=== PATIENT | male | born 2000 | race Caucasian/White ===

== ENCOUNTER 2019-07-25 07:34 | Emergency (ER) | payer BC, OTHER ==
[~2019-07-25] VITALS: Ht 172.7 cm; Wt 59.0 kg
--- NOTE | 2019-07-25 08:02 | ED Psychosocial ---
General Chief Complaint: Psych/Social Disorder Stated Complaint: PSYCH EVAL Nursing Triage Note: PT AMB TO [facility] 8 WITH COMPLAINT OF INSOMNIA AND MOOD CHANGES OVER THE LAST TWO WEEKS. STATES HE HAS BEEN HAVING ANXIETY ISSUES, BUT SYMPTOMS WORSENED WHEN RETURNING BACK TO SCHOOL. Source: patient Exam Limitations: no limitations History of Present Illness Date Seen by Provider: Jul 25, 2019 Time Seen by Provider: 07:35 Initial Comments Patient presents to ER by private conveyance with chief complaint of morbid ideation, low mood, insomnia, decreased appetite all exacerbated in the last 2 weeks. It's related to recently 3 starting school. He says his grades of been well but his social life is been suffering area and he says when he exercises he feels better for a little bit of any crashes. He's made an appointment with her counselor at school but then after talking to somebody going through some similar things he felt better so he canceled that appointment and did not follow-up. He has a primary care doctor and [place] where he grew up but he has not seen him a couple years. He is not on any medications has no medical history. Denies any weight loss or gain, pain, shortness of breath, nausea, vom iting, diarrhea, constipation, shortness of breath. He says he's had fleeting thoughts of jumping on the front of her car but has no plan to do that and instead wants to get help before he gets worse. Says he is not actively suicidal but he is scared about how he's been having a hard time adjusting to college life. Denies any recent tick bites. He's had no previous history of suicide attempts and or inpatient psychiatric hospitalizations. He says he does not think he needs to be hospitalized but he does want help and this doesn't know how to go about accessing this. Allergies and Home Medications Allergies Coded Allergies: No Known Drug Allergies (Unverified , 07/25/19) Patient Home Medication List Home Medication List Reviewed: Yes Review of Systems Constitutional: No chills, No diaphoresis EENTM: No hearing loss, No ear pain Respiratory: No cough, No short of breath Cardiovascular: No chest pain, No edema Gastrointestinal: No abdominal pain, No constipation, No nausea Genitourinary: No decreased output, No dysuria Musculoskeletal: No back pain, No joint pain Skin: No pruritus, No rash Psychiatric/Neurological: See HPI, Anxiety, Depressed; Denies Headache, Denies Numbness, Denies Paresthesia, Denies Seizure Past Jyzoqmm-Fvrrab-Fcvwsm Hx Patient Social History Alcohol Use: Occasionally Uses Recreational Drug Use: No Smoking Status: Never a Smoker Recent Foreign Travel: No Contact w/Someone Who Travel: No Recent Infectious Disease Expo: No Recent Hopitalizations: No Physical Abuse: No Sexual Abuse: No Mistreated: No Fear: No Immunizations Up To Date Tetanus Booster (TDap): Less than 5yrs PED Vaccines UTD: Yes Seasonal Allergies Seasonal Allergies: No Past Medical History Surgeries: No Respiratory: No Cardiac: No Neurological: No Genitourinary: No Gastrointestinal: No Musculoskeletal: No Endocrine: No HEENT: No Cancer: No Psychosocial: No Integumentary: No Blood Disorders: No Physical Exam Vital Signs - First Documented 07/25/19 07:38 Temp 97.7 Pulse 71 Resp 16 B/P (MAP) 147/102 (117) Pulse Ox 100 O2 Delivery Room Air Capillary Refill : Less Than 3 Seconds Height, Weight, BMI Height: 5'8.00" Weight: 130lbs. oz. 58.914676oa; BMI Method:Stated General Appearance: WD/WN, no apparent distress HEENT: PERRL/EOMI, pharynx normal Neck: full range of motion, normal inspection Respiratory: lungs clear, normal breath sounds, no respiratory distress, no accessory muscle use Cardiovascular: normal peripheral pulses, regular rate, rhythm, no edema, no murmur Peripheral Pulses: 2+ Dorsalis Pedis (R), 2+ Left Dors-Pedis (L), 2+ Radial Pulses (R), 2+ Radial Pulses (L) Gastrointestinal: non tender, soft Neurologic/Psychiatric: alert, oriented x 3, other (past) Appearance/Memory: appropriate appearance, appropriate insight, neat, no memory impairment Behavior/Eye Contact: cooperative, good eye contact, normal speech Thoughts/Hallucinations: normal thought pattern, no apparent hallucination; No delusions Skin: normal color, warm/dry Progress/Results/Core Measures Results/Orders Lab Results Laboratory Tests Test 07/25/19 08:31 07/25/19 08:37 Range/Units White Blood Count 4.2 L 4.3-11.0 10^3/uL Red Blood Count 5.78 4.35-5.85 10^6/uL Hemoglobin 16.6 13.3-17.7 G/DL Hematocrit 46 40-54 % Mean Corpuscular Volume 80 80-99 FL Mean Corpuscular Hemoglobin 29 25-34 PG Mean Corpuscular Hemoglobin Concent 36 32-36 G/DL Red Cell Distribution Width 12.1 10.0-14.5 % Platelet Count 201 130-400 10^3/uL Mean Platelet Volume 10.2 7.4-10.4 FL Neutrophils (%) (Auto) 57 42-75 % Lymphocytes (%) (Auto) 31 12-44 % Monocytes (%) (Auto) 11 0-12 % Eosinophils (%) (Auto) 1 0-10 % Basophils (%) (Auto) 0 0-10 % Neutrophils # (Auto) 2.4 1.8-7.8 X 10^3 Lymphocytes # (Auto) 1.3 1.0-4.0 X 10^3 Monocytes # (Auto) 0.4 0.0-1.0 X 10^3 Eosinophils # (Auto) 0.1 0.0-0.3 10^3/uL Basophils # (Auto) 0.0 0.0-0.1 10^3/uL Sodium Level 139 135-145 MMOL/L Potassium Level 4.2 3.6-5.0 MMOL/L Chloride Level 103 98-107 MMOL/L Carbon Dioxide Level 24 21-32 MMOL/L Anion Gap 12 5-14 MMOL/L Blood Urea Nitrogen 11 7-18 MG/DL Creatinine 0.82 0.60-1.30 MG/DL Estimat Glomerular Filtration Rate > 60 BUN/Creatinine Ratio 13 Glucose Level 94 70-105 MG/DL Calcium Level 9.7 8.5-10.1 MG/DL Corrected Calcium 8.5-10.1 MG/DL Total Bilirubin 1.1 H 0.1-1.0 MG/DL Aspartate Amino Transf (AST/SGOT) 18 5-34 U/L Alanine Aminotransferase (ALT/SGPT) 15 0-55 U/L Alkaline Phosphatase 76 40-136 U/L Total Protein 7.6 6.4-8.2 GM/DL Albumin 4.7 H 3.2-4.5 GM/DL Thyroid Stimulating Hormone (TSH) 1.48 0.35-4.94 UIU/ML Salicylates Level < 5.0 L 5.0-20.0 MG/DL Acetaminophen Level < 10 L 10-30 UG/ML Serum Alcohol < 10 <10 MG/DL Urine Color YELLOW Urine Clarity VERY CLOUDY H Urine pH 6.5 5-9 Urine Specific [place] 1.010 L 1.016-1.022 Urine Protein NEGATIVE NEGATIVE Urine Glucose (UA) NEGATIVE NEGATIVE Urine Ketones NEGATIVE NEGATIVE Urine Nitrite NEGATIVE NEGATIVE Urine Bilirubin NEGATIVE NEGATIVE Urine Urobilinogen NORMAL NORMAL MG/DL Urine Leukocyte Esterase NEGATIVE NEGATIVE Urine RBC (Auto) NEGATIVE NEGATIVE Urine RBC NONE /HPF Urine WBC NONE /HPF Urine Squamous Epithelial Cells NONE /HPF Urine Crystals NONE /LPF Urine Bacteria NEGATIVE /HPF Urine Casts NONE /LPF Urine Mucus NEGATIVE /LPF Urine Culture Indicated NO Urine Opiates Screen NEGATIVE NEGATIVE Urine Oxycodone Screen NEGATIVE NEGATIVE Urine Methadone Screen NEGATIVE NEGATIVE Urine Propoxyphene Screen NEGATIVE NEGATIVE Urine Barbiturates Screen NEGATIVE NEGATIVE Ur Tricyclic Antidepressants Screen NEGATIVE NEGATIVE Urine Phencyclidine Screen NEGATIVE NEGATIVE Urine Amphetamines Screen NEGATIVE NEGATIVE Urine Methamphetamines Screen NEGATIVE NEGATIVE Urine Benzodiazepines Screen NEGATIVE NEGATIVE Urine Cocaine Screen NEGATIVE NEGATIVE Urine Cannabinoids Screen NEGATIVE NEGATIVE My Orders Orders - CARLOS ALBERTO,ALCIDES J Ua Culture If Indicated (07/25/19 07:40) Cbc With Automated Diff (07/25/19 07:40) Comprehensive Metabolic Panel (07/25/19 07:40) Alcohol (07/25/19 07:40) Drug Screen Stat (Urine) (07/25/19 07:40) Acetaminophen (07/25/19 07:40) Salicylate (07/25/19 07:40) Ekg Tracing (07/25/19 07:40) Bh Status Checks/Observation Q15M (07/25/19 07:40) Thyroid Stimulating Hormone (07/25/19 08:02) Vital Signs/I&O 07/25/19 07:38 Temp 97.7 Pulse 71 Resp 16 B/P (MAP) 147/102 (117) Pulse Ox 100 O2 Delivery Room Air Blood Pressure Mean: 117 Progress Progress Note #1: Time: 08:01 Progress Note Plan medical screening since he has not had one to rule out anemia, hypothyroidism etc. We have encouraged follow-up with [facility] and will contact Louie lucero to set up some outpatient follow-up. 0810: Talked to Nilson at the [facility] line and he will relay the information to [facility] and attempt to get a screener. Progress Note #2: Time: 08:16 Progress Note Discussed case with Libia at the [facility] line and she says she'll be on about 15 minutes to screen him and help him set up a plan. Progress Note #3: Time: 09:43 Progress Note Libia from [facility] has met with the patient and we all agreed the patient would be fine to go out. She has provided follow-up appointment with [facility] in the next couple days. She is also provide him with the [facility] line and other resources. The patient was satisfied and rest of his labs are okay so we'll allow him to go home with a plan in place. Initial ECG Impression Date: Jul 25, 2019 Initial ECG Impression Time: 08:05 Initial ECG Rate: 54 Initial ECG Rhythm: Normal Sinus Initial ECG Intervals: Normal Initial ECG Impression: Normal, Nonspecific Changes Initial ECG Comparisson: No Previous ECG Available Comment Athletic appearing heart. No clinically significant ST elevation or depression. Departure Impression Primary Impression: Depression Qualified Codes: F32.9 - Major depressive disorder, single episode, unspecified Additional Impressions: Insomnia Qualified Codes: G47.00 - Insomnia, unspecified Anorexia Disposition: 01 HOME, SELF-CARE Condition: Stable Departure-Patient Inst. Decision time for Depature: 09:45 Referrals: NO,LOCAL PHYSICIAN (PCP) Primary Care Physician SARAH OQUENDO MD Patient Instructions: Depression, Insomnia (DC), Tips for Getting Better Sleep Add. Discharge Instructions: Plan to keep your follow-up appointment. If things get worse she can use the [phone] [facility] line. You may also return to the ER for immediate help. All discharge instructions reviewed with patient and/or family. Voiced understanding. Work/School Note: Work Release Form Date Seen in the Emergency Department: Jul 25, 2019 Return to Work: Jul 25, 2019 Restrictions: No Restrictions Copy Copies To 1: SARAH OQUENDO MD, TITUS J Jul 25, 2019 08:02
[2019-07-25 08:51] LABS: BASOPHILS % (AUTO) 0 % (0-10); EOSINOPHILS # (AUTO) 0.1 10^3/uL (0.0-0.3); EOSINOPHILS % (AUTO) 1 % (0-10); HEMATOCRIT 46 % (40-54); HEMOGLOBIN 16.6 G/DL (13.3-17.7); LYMPHOCYTES # (AUTO) 1.3 X 10^3 (1.0-4.0); LYMPHOCYTES % (AUTO) 31 % (12-44); MEAN CORPUSCULAR HEMOGLOBIN 29 PG (25-34); MEAN CORPUSCULAR HGB CONC 36 G/DL (32-36); MEAN CORPUSCULAR VOLUME 80 FL (80-99); MEAN PLATELET VOLUME 10.2 FL (7.4-10.4); MONOCYTES # (AUTO) 0.4 X 10^3 (0.0-1.0); MONOCYTES % (AUTO) 11 % (0-12); NEUTROPHILS # (AUTO) 2.4 X 10^3 (1.8-7.8); NEUTROPHILS % (AUTO) 57 % (42-75); PLATELET COUNT 201 10^3/uL (130-400); RED CELL DISTRIBUTION WIDTH 12.1 % (10.0-14.5); WHITE BLOOD COUNT 4.2 10^3/uL (4.3-11.0)
[2019-07-25 08:57] LABS: BILIRUBIN,URINE NEGATIVE (NEGATIVE); CLARITY,URINE VERY CLOUDY; COLOR,URINE YELLOW; GLUCOSE, URINE (UA) NEGATIVE (NEGATIVE); KETONES,URINE NEGATIVE (NEGATIVE); LEUKOCYTE ESTERASE ,URINE NEGATIVE (NEGATIVE); NITRITE,URINE NEGATIVE (NEGATIVE); PH,URINE 6.5 (5-9); PROTEIN,URINE NEGATIVE (NEGATIVE); UROBILINOGEN,URINE NORMAL (NORMAL)
[2019-07-25 09:00] LABS: BACTERIA,URINE NEGATIVE /HPF
[2019-07-25 09:01] LABS: AMPHETAMINE SCREEN, URINE NEGATIVE (NEGATIVE); BARBITURATE SCREEN URINE NEGATIVE (NEGATIVE); BENZODIAZEPINES SCREEN URINE NEGATIVE (NEGATIVE); CANNABINOID SCREEN, URINE NEGATIVE (NEGATIVE); COCAINE SCREEN URINE NEGATIVE (NEGATIVE); METHADONE STAT NEGATIVE (NEGATIVE); METHAMPHETAMINE SCREEN URINE S NEGATIVE (NEGATIVE); OPIATE SCREEN URINE NEGATIVE (NEGATIVE); OXYCODONE STAT NEGATIVE (NEGATIVE); PROPOXYPHENE STAT NEGATIVE (NEGATIVE); TRICYCLIC ANTIDEPRESSANTS SCRE NEGATIVE (NEGATIVE)
[2019-07-25 09:15] LABS: ALANINE AMINOTRANSFERASE 15 U/L (0-55); ALBUMIN 4.7 GM/DL (3.2-4.5); ALKALINE PHOSPHATASE 76 U/L (40-136); BILIRUBIN,TOTAL 1.1 MG/DL (0.1-1.0); BUN/CREATININE RATIO 13; CALCIUM 9.7 MG/DL (8.5-10.1); CARBON DIOXIDE 24 MMOL/L (21-32); CHLORIDE 103 MMOL/L (98-107); CREATININE SERUM 0.82 MG/DL (0.60-1.30); GFR ESTIMATED > 60; GLUCOSE 94 MG/DL (70-105); POTASSIUM 4.2 MMOL/L (3.6-5.0); SALICYLATE < 5.0 MG/DL (5.0-20.0); SODIUM 139 MMOL/L (135-145); TOTAL PROTEIN 7.6 GM/DL (6.4-8.2)
[2019-07-25 09:17] LABS: ACETAMINOPHEN < 10 UG/ML (10-30)
[2019-07-25 09:59] VITALS: BP 154/87
--- NOTE | 2019-07-25 09:59 | NUR ---
PT TO F/U W/ [facility] OR [facility] THIS WEEK FOR FURTHER CARE. ALSO VOICED HE WOULD CALL [facility] FOR ANY OTHER EMERGENT PSYCHIATRIC CONCERNS. LIST OF LOCAL [facility] NUMBERS PROVIDED BY INDIVIDUAL FROM [facility]
== END 2019-07-25 10:00 | disposition home or self-care (01) ==
LOC: EDUNIT# 07:34 → ER 07:35
DX: F32.9 Major depressive disorder, single episode, unspecified (principal); G47.00 Insomnia, unspecified; R63.0 Anorexia; F41.9 Anxiety disorder, unspecified
CPT/HCPCS: 36415; 80053; 80306; 80320; 80329; 81000; 84443; 85025; 93005

== ENCOUNTER 2022-02-25 09:14 | Emergency (ER) | payer OTHER ==
[~2022-02-25] VITALS: Ht 170 cm; Wt 95.0 kg
[2022-02-25] MEDS ORDERED: FAMOTIDINE 20MG/2ML IV (PEPCID) IV STA (09:29)
[2022-02-25] MEDS ORDERED: ANTACID SUSP 30 ML UDC (MYLANTA) PO ONE (09:30)
[2022-02-25] MEDS ORDERED: ONDANSETRON 4 MG/2 ML (SDV) Z0FRAN IVP ONE (09:30)
[2022-02-25] MEDS ORDERED: LIDOCAINE 2% VISCOUS 15 ML UDC PO ONE (09:30)
[2022-02-25 09:40] LABS: BASOPHILS % (AUTO) 0 % (0-10); EOSINOPHILS # (AUTO) 0.4 10^3/uL (0.0-0.3); EOSINOPHILS % (AUTO) 3 % (0-10); HEMATOCRIT 46 % (40-54); HEMOGLOBIN 16.3 g/dL (13.3-17.7); LYMPHOCYTES # (AUTO) 2.2 10^3/uL (1.0-4.0); LYMPHOCYTES % (AUTO) 17 % (12-44); MEAN CORPUSCULAR HEMOGLOBIN 29 pg (25-34); MEAN CORPUSCULAR HGB CONC 35 g/dL (32-36); MEAN CORPUSCULAR VOLUME 82 fL (80-99); MEAN PLATELET VOLUME 10.4 fL (9.0-12.2); MONOCYTES % (AUTO) 7 % (0-12); NEUTROPHILS # (AUTO) 9.3 10^3/uL (1.8-7.8); NEUTROPHILS % (AUTO) 72 % (42-75); PLATELET COUNT 259 10^3/uL (130-400)
[2022-02-25 09:52] LABS: ALBUMIN 4.5 GM/DL (3.2-4.5); INR 0.9 (0.8-1.4); PROTHROMBIN TIME PATIENT 12.8 SEC (12.2-14.7)
[2022-02-25 09:53] LABS: POTASSIUM 3.9 MMOL/L (3.6-5.0)
[2022-02-25 09:54] LABS: CALCIUM 9.7 MG/DL (8.5-10.1)
[2022-02-25 09:55] LABS: TOTAL PROTEIN 7.8 GM/DL (6.4-8.2)
--- NOTE | 2022-02-25 09:55 | ED General ---
General Chief Complaint: Cardiac/General Problems Stated Complaint: CHEST PAIN Nursing Triage Note: PT AMB TO RM 6 WITH C/O CHEST TIGHTNESS FOR 2-3 DAYS WHEN HE BREATHS IN AND WHEN HE LAYS DOWN. PT STATES THE TIGHTNESS WOKE HIM UP THIS MORNING Source of Information: Patient Exam Limitations: No Limitations (STAR BRITO STUDENT) History of Present Illness Date Seen by Provider: Feb 25, 2022 Time Seen by Provider: 09:25 Initial Comments Mr. Marinelli is a 21 yo male with no significant PMH that presents to ED today due to chest pain. States that this started 2-3 days ago and he decided to come to ED due to difficulty sleeping. States he has a tightness in his chest that is worse with laying down and that it hurts when he breathes in. The pain is located in the epigastric/substernal area of his chest. He is having shortness of breath. No fevers, nausea, or vomtiing. No change in appetite. He is a former vaper and uses alcohol about once per two weeks. (STAR BRITO STUDENT) Allergies and Home Medications Allergies Coded Allergies: No Known Drug Allergies (Unverified , 07/25/19) Patient Home Medication List Home Medication List Reviewed: Yes (ROYAL EL MD) Colchicine (Colchicine) 0.6 Mg Tablet, 0.6 MG PO BID PRN Prescribed by: ROYAL DEL RIO on 02/25/22 1444 Review of Systems Review of Systems Constitutional: No chills, No fever EENTM: No hearing loss, No vision loss Respiratory: No cough; short of breath, other (inspirational pain) Cardiovascular: chest pain (Substernal/epigastric area); No edema Gastrointestinal: abdominal pain (Epigastric); No constipation, No diarrhea, No melena, No nausea, No vomiting Genitourinary: No dysuria, No hematuria Musculoskeletal: No joint pain, No joint swelling Skin: No lesions, No rash Psychiatric/Neurological: Denies Headache, Denies Numbness (STAR BRITO STUDENT) Past Dbevhul-Ewcmsn-Qtsbvs Hx Patient Social History Tobacco Use?: No Use of E-Cig and/or Vaping dev: No Substance use?: No Alcohol Use?: Yes Alcohol type: Beer Alcohol Frequency: Rarely Pt feels they are or have been: No (Watch[employer] STUDENT) Immunizations Up To Date Tetanus Booster (TDap): Less than 5yrs PED Vaccines UTD: Yes First/Initial COVID19 Vaccinat: 02/01/21 Second COVID19 Vaccination [place]: 03/02/21 COVID19 Vaccine Project Archivist: MEHULNine Star (ALISHABasisnote AGSTAR MED STUDENT) Seasonal Allergies Seasonal Allergies: No (ALISHA,News[employer] STUDENT) Past Medical History Surgeries: No Respiratory: No Cardiac: No Neurological: No Genitourinary: No Gastrointestinal: No Musculoskeletal: No Endocrine: No HEENT: No Cancer: No Psychosocial: No Integumentary: No Blood Disorders: No (STAR BRITO [employer] STUDENT) Psychosocial: Yes Depression (ROYAL EL MD) Physical Exam Vital Signs Vital Signs - First Documented 02/25/22 09:20 Temp 36.2 Pulse 106 Resp 18 B/P (MAP) 137/86 (103) (ROYAL EL MD) Vital Signs Capillary Refill : (STAR BRITO [employer] STUDENT) Height, Weight, BMI Height: 5'8.00" Weight: 130lbs. oz. 58.474247hx; 32.00 BMI Method:Stated General Appearance: No Apparent Distress, WD/WN Eyes: Bilateral Eye Normal Inspection, Bilateral Eye PERRL, Bilateral Eye EOMI HEENT: PERRL/EOMI, Pharynx Normal, Moist Mucous Membranes Respiratory: Chest Non Tender, Lungs Clear, Normal Breath Sounds Cardiovascular: Regular Rate, Rhythm, No Edema, No Murmur, Normal Peripheral Pulses Gastrointestinal: Normal Bowel Sounds, Non Tender, Soft Extremity: Non Tender, No Calf Tenderness, No Pedal Edema Neurologic/Psychiatric: Alert, Oriented x3, Normal Mood/Affect Skin: Normal Color, Warm/Dry (ALISHABasisnote AGSTAR MED STUDENT) Progress/Results/Core Measures Suspected Sepsis SIRS Temperature: Pulse: 106 Respiratory Rate: 18 Laboratory Tests 02/25/22 09:34: White Blood Count 13.0H Blood Pressure 137 /86 Mean: 103 Laboratory Tests 02/25/22 09:34: INR Comment 0.9, Platelet Count 259 (Pulse ElectronicsSTAR MED STUDENT) Results/Orders Lab Results Laboratory Tests Test 02/25/22 09:32 02/25/22 09:34 Range/Units Influenza Type A (RT-PCR) Not Detected Not Detecte Influenza Type B (RT-PCR) Not Detected Not Detecte SARS-CoV-2 RNA (RT-PCR) Not Detected Not Detecte White Blood Count 13.0 H 4.3-11.0 10^3/uL Red Blood Count 5.65 H 4.30-5.52 10^6/uL Hemoglobin 16.3 13.3-17.7 g/dL Hematocrit 46 40-54 % Mean Corpuscular Volume 82 80-99 fL Mean Corpuscular Hemoglobin 29 25-34 pg Mean Corpuscular Hemoglobin Concent 35 32-36 g/dL Red Cell Distribution Width 11.8 10.0-14.5 % Platelet Count 259 130-400 10^3/uL Mean Platelet Volume 10.4 9.0-12.2 fL Immature Granulocyte % (Auto) 0 % Neutrophils (%) (Auto) 72 42-75 % Lymphocytes (%) (Auto) 17 12-44 % Monocytes (%) (Auto) 7 0-12 % Eosinophils (%) (Auto) 3 0-10 % Basophils (%) (Auto) 0 0-10 % Neutrophils # (Auto) 9.3 H 1.8-7.8 10^3/uL Lymphocytes # (Auto) 2.2 1.0-4.0 10^3/uL Monocytes # (Auto) 1.0 0.0-1.0 10^3/uL Eosinophils # (Auto) 0.4 H 0.0-0.3 10^3/uL Basophils # (Auto) 0.0 0.0-0.1 10^3/uL Immature Granulocyte # (Auto) 0.0 0.0-0.1 10^3/uL Erythrocyte Sedimentation Rate 11 0-15 MM/HR Prothrombin Time 12.8 12.2-14.7 SEC INR Comment 0.9 0.8-1.4 Activated Partial Thromboplast Time 28 24-35 SEC D-Dimer 0.58 H 0.00-0.49 UG/ML Sodium Level 141 135-145 MMOL/L Potassium Level 3.9 3.6-5.0 MMOL/L Chloride Level 105 98-107 MMOL/L Carbon Dioxide Level 20 L 21-32 MMOL/L Anion Gap 16 H 5-14 MMOL/L Blood Urea Nitrogen 10 7-18 MG/DL Creatinine 0.85 0.60-1.30 MG/DL Estimat Glomerular Filtration Rate 125 BUN/Creatinine Ratio 12 Glucose Level 110 H 70-105 MG/DL Calcium Level 9.7 8.5-10.1 MG/DL Corrected Calcium 9.3 8.5-10.1 MG/DL Magnesium Level 1.9 1.6-2.4 MG/DL Total Bilirubin 0.5 0.1-1.0 MG/DL Aspartate Amino Transf (AST/SGOT) 18 5-34 U/L Alanine Aminotransferase (ALT/SGPT) 21 0-55 U/L Alkaline Phosphatase 66 40-136 U/L Myoglobin 35.9 10.0-92.0 NG/ML Troponin I < 0.028 <0.028 NG/ML C-Reactive Protein High Sensitivity 1.04 H 0.00-0.50 MG/DL Total Protein 7.8 6.4-8.2 GM/DL Albumin 4.5 3.2-4.5 GM/DL Lipase 11 8-78 U/L (ROYAL EL MD) My Orders Orders - ROYAL EL MD Covid 19 Inhouse Test (02/25/22:18) Influenza A And B By Pcr (02/25/22:18) Cbc With Automated Diff (02/25/22:) Magnesium (02/25/22:) Ekg Tracing (02/25/22:) Comprehensive Metabolic Panel (02/25/22:) Myoglobin Serum (02/25/22:) Protime With Inr (02/25/22:) Partial Thromboplastin Time (02/25/22:29) O2 (02/25/22:29) Monitor-Rhythm Ecg Trace Only (02/25/22:29) Ed Iv/Invasive Line Start (02/25/22:29) Lipase (02/25/22:) Fibrin Degradation Products (02/25/22:) Troponin I Faby (02/25/22:) Ondansetron Injection (Zofran Injectio (02/25/22 09:30) Lidocaine 2% Viscous 15 Ml (Xylocaine Vi (02/25/22:30) Antacid Suspension (Mylanta Suspension (02/25/22 09:30) Famotidine Injection (Pepcid Injection) (02/25/22 09:29) Hs C Reactive Protein (02/25/22 09:38) Erythrocyte Sedimentation Rate (02/25/22 09:38) Chest Pa/Lat (2 View) (02/25/22 09:38) Ct Angio Chest W (02/25/22 11:53) Iohexol Injection (Omnipaque 350 Mg/Ml 1 (02/25/22 12:00) Received Contrast (Hold Metformin- Contr (02/25/22 12:00) Ns (Ivpb) (Sodium Chloride 0.9% Ivpb Bag (02/25/22 12:00) Ketorolac Injection (Toradol Injection) (02/25/22 13:15) Colchicine Tablet (Colcrys Tablet) (02/25/22 14:30) Acetaminophen Tablet (Tylenol Tablet) (02/25/22 14:45) (ROYAL EL MD) Medications Given in ED Current Medications Medications Dose Ordered Sig/Celine Route Start Time Stop Time Status Last Admin Dose Admin Acetaminophen 1,000 mg ONCE ONCE PO 02/25/22 14:45 02/25/22 14:46 DC 02/25/22 14:44 1,000 MG Al Hydrox/Mg Hydrox/Simethicone 30 ml ONCE ONCE PO 02/25/22 09:30 02/25/22 09:32 DC 02/25/22 09:39 30 ML Colchicine 0.6 mg ONCE ONCE PO 02/25/22 14:30 02/25/22 14:31 DC 02/25/22 14:43 0.6 MG Iohexol 100 ml ONCE ONCE IV 02/25/22 12:00 02/25/22 12:01 DC 02/25/22 12:21 85 ML Ketorolac Tromethamine 15 mg ONCE ONCE IVP 02/25/22 13:15 02/25/22 13:16 DC 02/25/22 13:28 15 MG Lidocaine HCl 15 ml ONCE ONCE PO 02/25/22 09:30 02/25/22 09:32 DC 02/25/22 09:39 15 ML Ondansetron HCl 4 mg ONCE ONCE IVP 02/25/22 09:30 02/25/22 09:32 DC 02/25/22 09:39 4 MG Sodium Chloride 100 ml ONCE ONCE IV 02/25/22 12:00 02/25/22 12:01 DC 02/25/22 12:21 80 ML (ROYAL EL MD) Vital Signs/I&O 02/25/22 02/25/22 09:20 14:51 Temp 36.2 36.2 Pulse 106 105 Resp 18 18 B/P (MAP) 137/86 (103) 111/80 (ROYAL EL MD) Vital Signs/I&O Capillary Refill : (STAR BRITO MED STUDENT) Blood Pressure Mean: 103 Progress Note #1: Time: 12:07 Progress Note Work-up revealed minimal elevation in CRP and mild elevation in WBC. Work-up was otherwise unremarkable. GI cocktail was administered, and patient reported no improvement in chest pain after GI cocktail. He still complains of pleuritic pain in the center of his chest. Influenza and Covid swabs were negative. D-di chelsie was 0.58. I discussed the significance of this with the patient. While a slight elevation in D-dimer is not strongly suggestive of pulmonary embolus, he does also have a pleuritic chest pain and sinus tachycardia. We discussed risks and benefits of CT angiogram for further evaluation. Patient elects to proceed with CT angiogram. Progress Note #2: Progress Note CT scan revealed no pulmonary embolus or pneumonia. There was a tiny pericardial effusion. The subtle ST changes along with the pleuritic chest pain that is positional raises the question of perhaps a mild early pericarditis. This was discussed with Dr. Cleary. After discussion we developed a treatment plan that includes NSAIDs and colchicine. Patient was given Toradol in the ER and still had some significant residual pain. A dose of colchicine was also given. See discharge instructions for further discussion. (ROYAL EL MD) ECG Initial ECG Impression Date: Feb 25, 2022 Initial ECG Impression Time: 09:28 Initial ECG Rate: 105 Initial ECG Rhythm: S.Tach Comment Sinus tachycardia. Subtle ST changes in multiple leads suggestive of juvenile pattern. No STEMI. No abnormal intervals or axis deviation. (ROYAL EL MD) Diagnostic Imaging Diagonstic Imaging: Xray Plain Films/CT/US/NM/MRI: chest Comments Chest x-rays viewed by me and report reviewed. See report below: (ROYAL EL MD) Departure Impression Primary Impression: Pleuritic chest pain Disposition: 01 HOME, SELF-CARE Condition: Improved Departure-Patient Inst. Referrals: NO,LOCAL PHYSICIAN (PCP) Primary Care Physician RIGO CLEARY JR, MD Patient Instructions: Pericarditis in Adults, Pleuritic Chest Pain Add. Discharge Instructions: The exact cause of your pleuritic chest pain is uncertain. It may be related to pleurisy or even a mild pericarditis (inflammation of the heart sac). This may be treated with anti-inflammatory medication. I recommend that you take ibuprofen 600 mg every 6 hours for 2 weeks. You may also use colchicine as prescribed. You may additionally take Tylenol (acetaminophen) up to 1000 mg every 6 hours as needed for additional pain control. Do not double up on NSAID medications. Follow-up with Dr. Cleary as soon as possible. Call tomorrow morning to schedule an appointment. Also follow-up with a primary care provider soon as possible. Expect to have some notable pain for a few more days. Pain should gradually decrease over the next 1 to 2 weeks. Call with questions or concerns. Return to the ER if you have worsening symptoms despite following these instructions. All discharge instructions reviewed with patient and/or family. Voiced understanding. Scripts Colchicine (Colchicine) 0.6 Mg Tablet 0.6 MG PO BID PRN, #14 TAB Prov: ROYAL EL MD 02/25/22 Medical Student Attestation and Attending Note: I have personally interviewed and examined this patient along with Star Brito, MS 4. I have reviewed student documentation including history, physical, and assessments. I agree with the documentation except where otherwise noted. Exam: General: Alert, oriented, anxious, well developed HEENT: Normocephalic and atraumatic Heart: Tachycardia with regular rate and rhythm without murmur Lungs: Clear to auscultation bilaterally with normal effort, chest not tender to palpation Abdomen: Soft, nontender, nondistended, normal bowel sounds Neuropsych: Alert, oriented, no focal deficits, appears anxious Extremities: Normal in appearance, no edema, no tenderness Skin: Warm and dry without rashes (ROYAL EL MD) Copy Copies To 1: RIGO CLEARY JR, MD [employer]ECKH[employer] MED STUDENT Feb 25, 2022 09:55 ROYAL EL MD Feb 25, 2022 12:09
[2022-02-25 09:57] LABS: BILIRUBIN,TOTAL 0.5 MG/DL (0.1-1.0)
[2022-02-25 09:59] LABS: CREATININE SERUM 0.85 MG/DL (0.60-1.30)
[2022-02-25 10:01] LABS: MAGNESIUM 1.9 MG/DL (1.6-2.4)
--- NOTE | 2022-02-25 10:58 | Diagnostic Imaging Report ---
INDICATION: Shortness of air with chest pain. EXAMINATION: Two view chest on 02/25/2022. FINDINGS: The cardiomediastinal silhouette is unremarkable. The pulmonary vasculature is within normal limits. The lungs and pleural spaces are clear. IMPRESSION: No evidence of an acute cardiopulmonary process. Dictated by: Dictated on workstation # [id number]
[2022-02-25] MEDS ORDERED: HOLD METFORMIN - RECEIVED CONTRAST 20 ML VIAL IV SCH (12:00)
[2022-02-25] MEDS ORDERED: NS 100 ML (IVPB) BAG IV ONE (12:00)
[2022-02-25] MEDS ORDERED: IOHEXOL 350 MG/ML 100 ML (OMNIPAQUE 350) VIAL IV ONE (12:00)
--- NOTE | 2022-02-25 12:46 | Diagnostic Imaging Report ---
EXAMINATION: CT angiogram of the chest with contrast from 02/25/2022. TECHNIQUE: Multiple contiguous axial images were obtained through the chest after uneventful bolus administration of intravenous contrast. 3D reconstructed CTA MIP acquisitions were also performed. Auto Exposure Controls were utilized during the CT exam to meet ALARA standards for radiation dose reduction. INDICATION: Chest tightness for two to three days. FINDINGS: Unfortunately, the bolus is missed. This limits evaluation of the pulmonary arteries, especially the peripheral vessels. No saddle embolus is visualized. The thoracic aorta is unremarkable. Visualized upper abdominal structures are unremarkable. There are no significant pericardial or pleural effusions. Minimal pericardial fluid however is noted. There is no hilar or mediastinal adenopathy. Soft tissue prominence in the anterior mediastinum, likely due to residual thymic tissue. Lungs appear clear. There is no pneumothorax. There is no acute osseous abnormality. IMPRESSION: 1. Limited evaluation for pulmonary embolus as the bolus is missed. No saddle embolus is seen. A more peripheral embolus would be difficult to exclude but not seen. If there is continued concern, short-term follow-up may reevaluate. 2. Tiny pericardial effusion. Dictated by: Dictated on workstation # [id number]
[2022-02-25] MEDS ORDERED: KETOROLAC 30 MG/ML VIAL IVP ONE (13:15)
[2022-02-25] MEDS ORDERED: COLCHICINE 0.6 MG (COLCRYS) TABLET PO ONE (14:30)
[2022-02-25] MEDS ORDERED: COLC0.6T59 PO (14:44)
[2022-02-25] MEDS ORDERED: ACETAMINOPHEN 500 MG TAB (TYLENOL) PO ONE (14:45)
[2022-02-25 14:51] VITALS: BP 111/80
== END 2022-02-25 14:52 | disposition home or self-care (01) ==
LOC: EDUNIT# 09:14 → ER 09:15
DX: R07.81 Pleurodynia (principal); Z20.822 Contact with and (suspected) exposure to COVID-19
CPT/HCPCS: 36415; 71046; 71275; 80053; 83690; 83735; 83874; 84484; 85025; 85379; 85610; 85652; 85730; 86141; 87636; 93005; 93041

== ENCOUNTER → 2022-03-05 | Outpatient (CLI) | payer OTHER ==
[~2022-03-05] MED LIST: COLC0.6T59 PO
== END ==
LOC: CARD 13:39
PROVIDERS: ATTEND Internal Medicine Cardiovascular Disease
DX: I51.7 Cardiomegaly (principal); I31.3 Pericardial effusion (noninflammatory); I31.9 Disease of pericardium, unspecified
CPT/HCPCS: 93306